=== PATIENT | male | born 1970 | race Caucasian/White ===

== ENCOUNTER 2017-07-07 08:26 | Inpatient (IN) | payer OTHER, MEDICARE ==
[~2017-07-07] VITALS: Ht 195.6 cm; Wt 153.0 kg
[~2017-07-07 08:26] MED LIST: ACID1GRA3 PO; ASPI-650 PO; ATEN50TA41 PO; CALC200T56 PO; CEFT1FRO2 IV; DIPH1TAB6 PO; INSU100I18 SQ-INSULIN; INSU100I28 SQ-INSULIN; INSU100V8 SQ; ISOS20TA58 PO; LORA-446 PO; METF500T PO; SERT50TA PO; TRAM50TA2 PO; VANC1VIA3 PO
[2017-07-07] MEDS ORDERED: ASPIRIN 81 MG TABLET CHEW ONE ×2 (08:50→08:52)
[2017-07-07] MEDS ORDERED: SODIUM CHLORIDE FLUSH 10ML SYR IVF ONE (09:00)
[2017-07-07] MEDS ORDERED: ASPIRIN 81 MG TABLET CHEW PO ONE (09:00)
[2017-07-07 09:29] LABS: BASOPHILS # (AUTO) 0.04 x10^3/uL (0-0.1); BASOPHILS % (AUTO) 1 % (0-1); EOSINOPHILS # (AUTO) 0.08 x10^3/uL (0-0.4); EOSINOPHILS % (AUTO) 1 % (1-7); LYMPHOCYTES # (AUTO) 2.06 x10^3/uL (1-3.4); LYMPHOCYTES % (AUTO) 25 % (22-44); MD NO; MEAN CORPUSCULAR HEMOGLOBIN 29.9 pg (27.5-34.5); MEAN CORPUSCULAR HGB CONC 33.5 g/dL (33.2-36.2); MEAN CORPUSCULAR VOLUME 89.1 fL (81-97); MEAN PLATELET VOLUME 8.1 fL (7.4-10.4); MONOCYTES # (AUTO) 0.61 x10^3/uL (0.2-0.8); MONOCYTES % (AUTO) 7 % (2-9); NEUTROPHILS # (AUTO) 5.51 x10^3/uL (1.8-6.8); NEUTROPHILS % (AUTO) 66 % (42-75); PLATELET COUNT 293 x10^3/uL (130-400); RED BLOOD COUNT 4.98 x10^6/uL (4.38-5.82); RED CELL DISTRIBUTION WIDTH 14.2 % (9.4-14.8)
[2017-07-07 09:41] LABS: ALBUMIN 3.8 g/dL (3.4-5.0); ANION GAP 9 mmol/L (5-15); CALCIUM 8.7 mg/dL (8.5-10.1); CHLORIDE 109 mmol/L (98-107)
[2017-07-07 09:48] LABS: ALANINE AMINOTRANSFERASE 29 U/L (12-78); ALKALINE PHOSPHATASE 63 U/L (45-117); BILIRUBIN,TOTAL 0.3 mg/dL (0.2-1.0); CREATININE 1.15 mg/dL (0.7-1.3); TOTAL PROTEIN 7.2 g/dL (6.4-8.2); TROPONIN I < 0.015 ng/mL (0.000-0.045)
[2017-07-07] MEDS ORDERED: BUSP10TA PO (12:01)
[2017-07-07] MEDS ORDERED: ONDANSETRON ODT 4 MG PO PRN (12:30)
[2017-07-07] MEDS ORDERED: LORazepam 1MG TABLET PO PRN (12:30)
[2017-07-07] MEDS ORDERED: POLYETHYLENE GLYCOL 17 GM PACKET PO PRN (12:30)
[2017-07-07] MEDS ORDERED: ONDANSETRON 2MG/ML, 2ML IVPush PRN (12:30)
[2017-07-07] MEDS ORDERED: LABETALOL 5MG/ML, 20ML IVPush PRN (12:30)
[2017-07-07 13:10] VITALS: BP 127/83
[2017-07-07 13:14] LABS: CHOLESTEROL, TOTAL 194 mg/dL (140-239); TRIGLYCERIDES 340 mg/dL (50-200); VLDL CHOLESTEROL 68 mg/dL (0-25)
[2017-07-07 13:18] LABS: CHOL/HDL RATIO 4.9; FREE T4 (FREE THYROXINE) 0.69 ng/dL (0.76-1.46); HDL CHOL % 21 % (26-37); HDL CHOLESTEROL (DIRECT) 40 mg/dL (40-60); LDL CHOLESTEROL,CALCULATED 86 mg/dL (54-169); LDL/HDL RATIO 2.2 (0.5-3.0); TROPONIN I < 0.015 ng/mL (0.000-0.045)
[2017-07-07 13:20] LABS: HEMOGLOBIN A1C 6.3 % (4.2-6.3)
[2017-07-07] MEDS ORDERED: IBUP-1222 PO (13:59)
[2017-07-07] MEDS ORDERED: TRAZ100T15 PO (13:59)
[2017-07-07] MEDS ORDERED: GABA300C10 PO (13:59)
[2017-07-07] MEDS: SODIUM CHLORIDE 0.9% 1,000 ML IV SCH (15:01)
[2017-07-07] MEDS: ENOXAPARIN 40 MG/0.4 ML SQ SCH (15:01)
[2017-07-07] MEDS: INSULIN LISPRO 100 UNITS/ML, PEN SQ-INSULIN SCH ×2 (16:00→21:00)
[2017-07-07] MEDS: PANTOPROZOLE 40MG TABLET PO SCH (17:06)
[2017-07-07] MEDS: GABAPENTIN 300 MG CAPSULE PO SCH ×2 (17:06→21:15)
[2017-07-07 18:58] LABS: TROPONIN I < 0.015 ng/mL (0.000-0.045)
[2017-07-07 19:42] VITALS: BP 133/77
[2017-07-07] MEDS ORDERED: metFORMIN 500 MG TABLET PO SCH (21:00)
[2017-07-07] MEDS ORDERED: PANTOPRAZOLE 40 MG IV IVPush SCH (21:00)
[2017-07-07] MEDS: TRAZODONE 100MG TABLET PO SCH (21:14)
[2017-07-07] MEDS: BUSPIRONE 5 MG TABLET PO SCH (21:14)
[2017-07-07] MEDS: SERTRALINE 100MG TABLET PO SCH (21:15)
[2017-07-08 00:28] VITALS: BP 104/64
[2017-07-08] MEDS: SODIUM CHLORIDE 0.9% 1,000 ML IV SCH ×2 (02:28→17:56)
[2017-07-08 05:28] LABS: BASOPHILS # (AUTO) 0.06 x10^3/uL (0-0.1); BASOPHILS % (AUTO) 1 % (0-1); EOSINOPHILS # (AUTO) 0.17 x10^3/uL (0-0.4); EOSINOPHILS % (AUTO) 2 % (1-7); LYMPHOCYTES # (AUTO) 2.84 x10^3/uL (1-3.4); LYMPHOCYTES % (AUTO) 31 % (22-44); MD NO; MEAN CORPUSCULAR HEMOGLOBIN 30.2 pg (27.5-34.5); MEAN CORPUSCULAR HGB CONC 33.7 g/dL (33.2-36.2); MEAN CORPUSCULAR VOLUME 89.5 fL (81-97); MONOCYTES # (AUTO) 0.76 x10^3/uL (0.2-0.8); MONOCYTES % (AUTO) 8 % (2-9); NEUTROPHILS # (AUTO) 5.33 x10^3/uL (1.8-6.8); NEUTROPHILS % (AUTO) 58 % (42-75); PLATELET COUNT 273 x10^3/uL (130-400); RED BLOOD COUNT 4.85 x10^6/uL (4.38-5.82); RED CELL DISTRIBUTION WIDTH 14.1 % (9.4-14.8)
[2017-07-08 05:42] LABS: ALANINE AMINOTRANSFERASE 28 U/L (12-78); ALBUMIN 3.5 g/dL (3.4-5.0); ANION GAP 8 mmol/L (5-15); CALCIUM 8.1 mg/dL (8.5-10.1); CHLORIDE 107 mmol/L (98-107)
[2017-07-08 05:53] LABS: ALKALINE PHOSPHATASE 60 U/L (45-117); BILIRUBIN,TOTAL 0.7 mg/dL (0.2-1.0); CREATININE 1.34 mg/dL (0.7-1.3); TOTAL PROTEIN 6.7 g/dL (6.4-8.2)
[2017-07-08] MEDS: INSULIN LISPRO 100 UNITS/ML, PEN SQ-INSULIN SCH ×4 (07:00→21:00)
[2017-07-08 07:14] VITALS: BP 112/70
[2017-07-08] MEDS: BUSPIRONE 5 MG TABLET PO SCH ×2 (08:28→21:59)
[2017-07-08] MEDS: SENNA/DOCUSATE TABLET PO SCH (08:28)
[2017-07-08] MEDS: PANTOPROZOLE 40MG TABLET PO SCH ×2 (08:28→17:56)
[2017-07-08] MEDS: GABAPENTIN 300 MG CAPSULE PO SCH ×3 (08:28→21:00)
[2017-07-08] MEDS ORDERED: SERTRALINE 100MG TABLET PO SCH (09:00)
[2017-07-08] MEDS ORDERED: REGADENOSON 0.4 MG/5 ML SYRINGE ONE (10:16)
[2017-07-08] MEDS: ENOXAPARIN 40 MG/0.4 ML SQ SCH (12:01)
[2017-07-08 14:02] VITALS: BP 134/81
[2017-07-08 19:15] VITALS: BP 128/78
[2017-07-08] MEDS ORDERED: GABAPENTIN 100 MG CAPSULE ONE (21:55)
[2017-07-08] MEDS: TRAZODONE 100MG TABLET PO SCH (21:59)
[2017-07-08] MEDS: SERTRALINE 100MG TABLET PO SCH (22:01)
[2017-07-08] MEDS ORDERED: IBUPROFEN 200 MG TABLET PO PRN (23:30)
[2017-07-09 01:19] VITALS: BP 115/76
[2017-07-09 05:45] LABS: ALBUMIN 3.5 g/dL (3.4-5.0); ANION GAP 8 mmol/L (5-15); CALCIUM 8.4 mg/dL (8.5-10.1); CHLORIDE 109 mmol/L (98-107)
[2017-07-09] MEDS: INSULIN LISPRO 100 UNITS/ML, PEN SQ-INSULIN SCH ×3 (07:00→16:00)
[2017-07-09] MEDS: PANTOPROZOLE 40MG TABLET PO SCH ×3 (07:30→17:00)
[2017-07-09] MEDS: SODIUM CHLORIDE 0.9% 1,000 ML IV SCH (07:30)
[2017-07-09 07:32] VITALS: BP 122/77
[2017-07-09] MEDS: SENNA/DOCUSATE TABLET PO SCH (08:34)
[2017-07-09] MEDS: GABAPENTIN 300 MG CAPSULE PO SCH ×3 (08:34→16:00)
[2017-07-09] MEDS: BUSPIRONE 5 MG TABLET PO SCH ×2 (08:34→13:40)
[2017-07-09] MEDS ORDERED: LACTATED RINGERS 1,000 ML IVBOLUS ONE (10:30)
[2017-07-09 12:30] VITALS: BP 122/79
[2017-07-09] MEDS ORDERED: PANT40TA5 PO (16:21)
[2017-07-09] MEDS ORDERED: ATEN50TA41 PO (16:21)
== END 2017-07-09 18:02 | disposition home or self-care (01) | DRG 313 ==
LOC: ED 11:37 → EDIP 11:38 → ED 12:20 → 5SO 13:06
PROVIDERS: ADMIT Hospitalist; ATTEND Hospitalist
DX: R07.89 Other chest pain (principal); I20.0 Unstable angina; E11.65 Type 2 diabetes mellitus with hyperglycemia; I42.2 Other hypertrophic cardiomyopathy; E66.9 Obesity, unspecified; E78.5 Hyperlipidemia, unspecified; F17.210 Nicotine dependence, cigarettes, uncomplicated; R00.0 Tachycardia, unspecified; R07.2 Precordial pain; I10 Essential (primary) hypertension; I25.2 Old myocardial infarction; Z82.3 Family history of stroke; Z79.82 Long term (current) use of aspirin; Z83.3 Family history of diabetes mellitus; Z88.1 Allergy status to other antibiotic agents
CPT/HCPCS: 36415; 71045; 78452; 80048; 80053; 80061; 82040; 82962; 83036; 83735; 84100; 84439; 84443; 84484; 85025; 93005; 93017; 93306; 99285; J1650; J2785; A9502; C9898; J7030; J7120

== ENCOUNTER 2020-04-22 16:32 | Emergency (ER) | payer MEDICARE, OTHER ==
[~2020-04-22] VITALS: Ht 195.6 cm; Wt 162.0 kg
[~2020-04-22 16:32] MED LIST changes: -ASPI-650 PO; +ASPI325T20 PO; +BUSP10TA PO; +GABA300C10 PO; +IBUP-1222 PO; +PANT40TA6 PO; +TRAZ-175 PO
[2020-04-22 19:24] VITALS: BP 140/81
== END 2020-04-22 19:27 | disposition home or self-care (01) ==
LOC: ED 19:15
DX: R05 Cough (principal); Z20.822 Contact with and (suspected) exposure to COVID-19; R19.7 Diarrhea, unspecified; R09.81 Nasal congestion; R51.9 Headache, unspecified
CPT/HCPCS: 87635; 99283